=== PATIENT | male | born 1980 | race Caucasian/White ===

== ENCOUNTER 2019-07-20 19:51 | Emergency (ER) | payer MEDICAID, OTHER ==
[~2019-07-20] VITALS: Ht 190.5 cm; Wt 138.0 kg
[~2019-07-20 19:51] MED LIST: CYCL-1 PO; LORA1TAB PO; METH-360 PO; PRED50TA PO; PRED5TAB PO
[2019-07-20 21:27] VITALS: BP 128/99
== END 2019-07-20 21:29 | disposition home or self-care (01) ==
LOC: ER 19:52
DX: I80.8 Phlebitis and thrombophlebitis of other sites (principal); F12.90 Cannabis use, unspecified, uncomplicated; I10 Essential (primary) hypertension; E03.9 Hypothyroidism, unspecified; F17.200 Nicotine dependence, unspecified, uncomplicated; Z79.899 Other long term (current) drug therapy
CPT/HCPCS: 93971; 99284

== ENCOUNTER 2019-08-15 15:28 | Emergency (ER) | payer OTHER, MEDICAID ==
[~2019-08-15] VITALS: Ht 190.5 cm; Wt 159.0 kg
[2019-08-15 15:29] VITALS: BP 159/93
[2019-08-15] MEDS ORDERED: PENI500T2 PO (16:12)
[2019-08-15] MEDS ORDERED: IBUP-1984 PO (16:12)
== END 2019-08-15 16:54 | disposition home or self-care (01) ==
LOC: ER 15:29
DX: J02.9 Acute pharyngitis, unspecified (principal); I10 Essential (primary) hypertension; E03.9 Hypothyroidism, unspecified; F12.90 Cannabis use, unspecified, uncomplicated; Z79.899 Other long term (current) drug therapy
CPT/HCPCS: 87880; 99283

== ENCOUNTER 2020-10-18 19:38 | Emergency (ER) | payer SELFPAY ==
[~2020-10-18] VITALS: Ht 190.5 cm; Wt 131.8 kg
[2020-10-18] MEDS ORDERED: IBUP-1984 PO (21:54)
[2020-10-18] MEDS ORDERED: ketorolac tromethamine 15mg/ml inj. IM ONE (21:55)
== END 2020-10-18 22:24 | disposition home or self-care (01) ==
LOC: ER 19:38
DX: S93.402A Sprain of unspecified ligament of left ankle, initial encounter (principal); M25.572 Pain in left ankle and joints of left foot; I10 Essential (primary) hypertension; E03.9 Hypothyroidism, unspecified; Z79.899 Other long term (current) drug therapy; W01.0XXA Fall on same level from slipping, tripping and stumbling without subsequent striking against object, initial encounter; Y93.89 Activity, other specified; Y92.89 Other specified places as the place of occurrence of the external cause; Y99.8 Other external cause status
CPT/HCPCS: 73610; 73630; 96372; 99284; J1885

== ENCOUNTER 2021-09-01 13:22 | Emergency (ER) | payer BC ==
[~2021-09-01] VITALS: Ht 190.5 cm; Wt 112.5 kg
[2021-09-01] MEDS ORDERED: AMOX-117 PO (14:29)
[2021-09-01] MEDS ORDERED: PRED20TA PO (14:29)
[2021-09-01] MEDS ORDERED: ALBU8HFA PO (14:29)
== END 2021-09-01 15:12 | disposition home or self-care (01) ==
LOC: ER 13:23
DX: J20.9 Acute bronchitis, unspecified (principal); H92.01 Otalgia, right ear; R05.9 Cough, unspecified; I10 Essential (primary) hypertension; E03.9 Hypothyroidism, unspecified; F12.90 Cannabis use, unspecified, uncomplicated; Z79.2 Long term (current) use of antibiotics; Z79.899 Other long term (current) drug therapy
CPT/HCPCS: 99283

== ENCOUNTER 2022-10-21 20:44 | Inpatient (IN) | payer BC ==
[~2022-10-21] VITALS: Ht 193 cm; Wt 133.3 kg
[2022-10-21] MEDS ORDERED: piperacillin/tazo 3.375gm/50ml 50 ML IV ONE (21:10)
[2022-10-21] MEDS ORDERED: vancomycin/NS 1 GM ADD-VANTAGE 250 ML IV ONE (21:10)
[2022-10-21] MEDS ORDERED: normal saline 1000ML IV soln IV ONE (21:10)
[2022-10-21] MEDS ORDERED: iohexol 350MG/ML 100ml bottle IV ONE (21:50)
[2022-10-21 22:10] LABS: ABG BASE EXCESS 0.9 mmol/L (-2.0-2.0); ABG OXYGEN SATURATION 99.4 % (94-97); ABG PCO2 (T) 49.5 mmHg (35.0-48.0); ABG PO2 (T) 309.9 mmHg (75.0-100.0); ALLEN'S TEST Modified; FCOHb 10.9 % (0.0-3.9); FMetHb 0.6 % (0.0-1.5); PATIENT TEMPERATURE 37.9; TOTAL HEMOGLOBIN 19.5 G/dl (14.0-17.9)
[2022-10-21 22:36] LABS: BASOPHILS % (AUTO) 0.2 % (0-1); EOSINOPHILS # (AUTO) 0.1 X10'3 (0-0.9); EOSINOPHILS % (AUTO) 0.8 % (0-6); HEMATOCRIT 57.1 % (42.0-52.0); LYMPHOCYTES # (AUTO) 0.5 X10'3 (1.1-4.8); LYMPHOCYTES % (AUTO) 3.4 % (21-51); MEAN CORPUSCULAR HEMOGLOBIN 32.8 PG (27.0-31.0); MEAN CORPUSCULAR HGB CONC 31.8 g/dL (33.0-36.5); MEAN CORPUSCULAR VOLUME 103.1 FL (78-98); MONOCYTES # (AUTO) 0.6 X10'3 (0-0.9); MONOCYTES % (AUTO) 3.8 % (2-12); NEUTROPHILS # (AUTO) 13.8 X10'3 (1.8-7.7); NEUTROPHILS % (AUTO) 91.8 % (42-75); PLATELET COUNT 65 X10'3 (140-440); RED BLOOD COUNT 5.53 X10'6 (4.70-6.10); RED CELL DISTRIBUTION WIDTH 24.9 % (11.5-14.5)
[2022-10-21 22:38] LABS: HEMOGLOBIN 18.1 g/dl (14.0-17.9)
[2022-10-21] MEDS: NORepinephrine 8mg/ 250ml NS 250 ML IV PRN (22:43)
[2022-10-21 22:50] LABS: ALANINE AMINOTRANSFERASE 23 U/L (12-78); ALBUMIN/GLOBULIN RATIO 0.7 (1.1-1.5); ALKALINE PHOSPHATASE 95 IU/L (46-116); ANION GAP 4 (8-16); ASPARTATE AMINO TRANSFERASE 44 U/L (10-37); BLOOD UREA NITROGEN 14 MG/DL (7-18); BUN/CREATININE RATIO 9.9 (10.0-20.0); CALCIUM 7.2 MG/DL (8.5-10.1); CHLORIDE 97 MMOL/L (99-107); CREATININE 1.42 MG/DL (0.60-1.10); GLUCOSE 57 MG/DL (70-104); POTASSIUM 5.2 MMOL/L (3.5-5.1); SODIUM 133 MMOL/L (135-145); TOTAL CARBON DIOXIDE 31.9 MMOL/L (24-32); TOTAL PROTEIN 4.7 G/DL (6.4-8.2); eGFR 55 ML/MIN
[2022-10-21] MEDS ORDERED: thiamine 100mg/ml 2ml inj. IV ONE (22:50)
[2022-10-21 23:26] LABS: ANISOCYTOSIS 3+; PLATELET ESTIMATE DECREASED; POIKILOCYTOSIS 1+
[2022-10-21 23:27] LABS: STOMATOCYTES 1+
[2022-10-22] VITALS (16 sets, daily range): BP systolic 88–118; BP diastolic 48–79
[2022-10-22] MEDS ORDERED: SODIUM CHLORIDE IV ONE (00:30)
[2022-10-22] MEDS ORDERED: HYDROXOCOBALAMIN IV ONE (00:30)
[2022-10-22 01:54] LABS: ABG BASE EXCESS 0.1 mmol/L (-2.0-2.0); ABG HCO3 29.2 mmol/L (22.0-26.0); ABG OXYGEN SATURATION 99.3 % (94-97); ABG PCO2 (T) 62.8 mmHg (35.0-48.0); ABG PO2 (T) 254.3 mmHg (75.0-100.0); ALLEN'S TEST POSITIVE; FCOHb 7.1 % (0.0-3.9); FMetHb 0.8 % (0.0-1.5); FO2Hb 91.5 % (94-97); RESPIRATORY RATE 12 b/min; TOTAL HEMOGLOBIN 20.7 G/dl (14.0-17.9)
[2022-10-22] MEDS ORDERED: morphine 2 MG/ML inj. syringe IV PRN (02:20)
[2022-10-22] MEDS ORDERED: ondansetron/PF 4mg/2ml inj IV PRN (02:20)
[2022-10-22] MEDS ORDERED: morphine 4 MG/ML inj SYRINge IV PRN (02:20)
[2022-10-22] MEDS ORDERED: acetaminophen 325mg tablet PO PRN ×2 (02:20)
--- NOTE | 2022-10-22 02:21 | NUR ---
UPDATE PROVIDED TO [facility] W/VITALS . [facility] TO CALL BACK
[2022-10-22] MEDS: ringers solution, lacted 1,000 ML IV SCH ×3 (02:50→22:26)
[2022-10-22] MEDS ORDERED: ampicillin/sulbac 3gm/NS 100ml 100 ML IV SCH (03:00)
[2022-10-22] MEDS: albuterol 2.5 MG/3 ML nebule NEB SCH ×6 (03:25→22:48)
[2022-10-22 04:52] LABS: ABG BASE EXCESS -0.1 mmol/L (-2.0-2.0); ABG HCO3 25.9 mmol/L (22.0-26.0); ABG OXYGEN SATURATION 97.2 % (94-97); ABG PCO2 (T) 46.1 mmHg (35.0-48.0); ABG PO2 (T) 91.4 mmHg (75.0-100.0); ALLEN'S TEST Modified; FCOHb 5.8 % (0.0-3.9); FMetHb 0.7 % (0.0-1.5); FO2Hb 90.9 % (94-97)
--- NOTE | 2022-10-22 07:30 | NUR ---
Received patient report from Magui SAPP. Patient coming to room 2041.
[2022-10-22] MEDS: heparin, porcine 5000 units/ml vial SQ SCH ×2 (08:00→15:06)
[2022-10-22 09:00] LABS: ALANINE AMINOTRANSFERASE 30 U/L (12-78); ALBUMIN 2.2 G/DL (3.4-5.0); ALKALINE PHOSPHATASE 119 IU/L (46-116); ANION GAP 7 (8-16); ASPARTATE AMINO TRANSFERASE 80 U/L (10-37); BILIRUBIN,TOTAL 5.5 MG/DL (0.1-1.0); BLOOD UREA NITROGEN 16 MG/DL (7-18); BUN/CREATININE RATIO 14.3 (10.0-20.0); CALCIUM 6.7 MG/DL (8.5-10.1); CHLORIDE 97 MMOL/L (99-107); CREATININE 1.12 MG/DL (0.60-1.10); GLUCOSE 95 MG/DL (70-104); SODIUM 133 MMOL/L (135-145); TOTAL CARBON DIOXIDE 28.7 MMOL/L (24-32); eGFR 73 ML/MIN
[2022-10-22 09:03] LABS: ALBUMIN/GLOBULIN RATIO 0.7 (1.1-1.5); TOTAL PROTEIN 5.4 G/DL (6.4-8.2)
[2022-10-22 09:21] LABS: RED BLOOD COUNT 6.28 X10'6 (4.70-6.10)
[2022-10-22 09:23] LABS: HEMATOCRIT 64.4 % (42.0-52.0); HEMOGLOBIN 20.5 g/dl (14.0-17.9); MEAN CORPUSCULAR HEMOGLOBIN 32.7 PG (27.0-31.0); MEAN CORPUSCULAR VOLUME 102.6 FL (78-98)
[2022-10-22 09:24] LABS: EOSINOPHILS % (AUTO) 1.5 % (0-6); LYMPHOCYTES % (AUTO) 2.6 % (21-51); MEAN CORPUSCULAR HGB CONC 31.8 g/dL (33.0-36.5); MONOCYTES % (AUTO) 2.7 % (2-12); NEUTROPHILS % (AUTO) 92.9 % (42-75); PLATELET COUNT 55 X10'3 (140-440); RED CELL DISTRIBUTION WIDTH 23.8 % (11.5-14.5)
[2022-10-22 09:25] LABS: BASOPHILS % (AUTO) 0.3 % (0-1); EOSINOPHILS # (AUTO) 0.2 X10'3 (0-0.9); LYMPHOCYTES # (AUTO) 0.4 X10'3 (1.1-4.8); MONOCYTES # (AUTO) 0.4 X10'3 (0-0.9); NEUTROPHILS # (AUTO) 13.4 X10'3 (1.8-7.7)
[2022-10-22] MEDS: methylPREDNISolone sod succ/PF 40mg inj. IV SCH ×3 (09:28→20:15)
[2022-10-22] MEDS: ampicillin/sulbac 3gm/NS 100ml 100 ML IV SCH ×3 (09:28→20:15)
[2022-10-22] MEDS: NORepinephrine 8mg/ 250ml NS 250 ML IV PRN ×2 (09:32→22:42)
[2022-10-22] MEDS ORDERED: albumin (human) 25% 100ml IV 400 ML IV ONE (11:10)
[2022-10-22] MEDS: thiamine 100mg tablet PO SCH (11:18)
[2022-10-22] MEDS: multivitamins, therapeutics tablet PO SCH (11:18)
[2022-10-22] MEDS: folic acid 1mg tablet PO SCH (11:19)
--- NOTE | 2022-10-22 11:42 | NUR ---
Initial: Pt admit for hypoxic respiratory failure, COPD exacerbation, septic shock, and cellulitis. Per bedside RN pt with chronic cellulitis/wound to BLE. Wound care has been consulted, pending assessment at this time. Pt with an active regular diet order however NPO at breakfast d/t being on the BiPAP. Per RN will trial switching to HFNC so pt can eat, however unsure of how pt will eat as pt is very sleepy per RN. Pt with EtOH hx per EMR, requests to begin routine Thiamine, Folic acid, and MVI; clinical pharmacist to update EMR. No documented BM however pt just admitted today per EMR. Will continue to follow closely and make recommendations as appropriate. Recommendations: 1) Continue regular diet 2) Monitor need for ONS/additional protein 3) Routine Thiamine, Folic acid, and MVI for EtOH hx with elevated MCV 4) Routine bowel care 5) Scaled weight this admit; subsequent weekly scaled weights Addendum: 10/22/22 at [address] Amended: Links added.
[2022-10-22] MEDS: pantoprazole 40MG/NS 100ML BAG 100 ML IV SCH (11:43)
[2022-10-22] MEDS: albumin (Human) 5% 250ml 250 ML IV SCH ×4 (11:49→21:28)
[2022-10-22 11:51] LABS: URINE AMPHETAMINE SCREEN NEGATIVE (Neg); URINE BARBITUATE SCREEN NEGATIVE (Neg); URINE BENZODIAZEPINES SCREEN NEGATIVE (Neg); URINE CANNABINOID SCREEN POSITIVE (Neg); URINE COCAINE SCREEN NEGATIVE (Neg); URINE METHADONE SCREEN NEGATIVE (Neg); URINE OPIATE SCREEN NEGATIVE (Neg); URINE PHENCYCLIDINE SCREEN NEGATIVE (Neg)
[2022-10-22] MEDS ORDERED: GABA600T13 PO (11:57)
[2022-10-22] MEDS ORDERED: BUPR1FIL3 SL (11:57)
[2022-10-22] MEDS ORDERED: BUPR1FIL5 SL (11:57)
[2022-10-22] MEDS ORDERED: SYN0.088T PO (11:57)
--- NOTE | 2022-10-22 12:10 | NUR ---
Took wound care pictures of right and left lower extremities and coccyx. Unable to print pictures, printer not working. Wound care nurse saw wounds and dressed accordingly.
[2022-10-22] MEDS ORDERED: nicotine 21mg patch - 24 hr TD ONE (12:15)
--- NOTE | 2022-10-22 13:27 | NUR ---
PRESSURE ULCER EDUCATION: DEFINITION: A pressure ulcer is an area of skin that breaks down when you stay in one position too long. The constant pressure against the skin reduces the blood flow to that area and the affected tissue dies. CAUSES: "Being bedridden or in a wheelchair "Fragile skin "Having a chronic condition, such as diabetes or vascular disease "Inability to move certain parts of your body without assistance "Older age "Incontinence of urine or stool SYMPTOMS: "A reddened area that DOES NOT turn white when pressed on - this can be the beginning of a pressure ulcer "A blister, deep sore or a crater - these can be advanced pressure ulcers FIRST AID: "Relieve the pressure on this area "Keep the area clean and dry "Call your primary doctor if you see any of the above symptoms "DO NOT massage the area "DO NOT use a donut shaped or ring shaped pillow- these actually interfere with the blood flow and cause complications PREVENTION: "Check for pressure ulcers everyday "Change position at least every two hours to relieve pressure "Use items that help relieve pressure- pillows, sheepskin, foam padding, and powders. "Keep skin clean and dry "Eat healthy well balanced meals "Exercise daily IF YOU SEE ANY OF THESE SYMPTOMS WHILE IN THE HOSPITAL - TELL YOUR NURSE IMMEDIATELY. IF YOU SEE ANY OF THESE SYMPTOMS WHILE AT HOME OR HAVE ANY QUESTIONS OR CONCERNS ABOUT PRESSURE ULCERS - CALL YOUR PRIMARY DOCTOR IMMEDIATELY. Addendum: 10/22/22 at 1327 by Shu Jama LVN Amended: Links added.
[2022-10-22] MEDS ORDERED: buprenorphine/naloxone 8MG-2MG SUBlingual film SL ONE (14:22)
[2022-10-22] MEDS: gabapentin 300mg capsule PO SCH (15:14)
--- NOTE | 2022-10-22 18:22 | NUR ---
Problems reprioritized. Patient report given, questions answered & plan of care reviewed with Bo SAPP.
[2022-10-22] MEDS: midodrine tablet 2.5 MG TABLET PO SCH (20:15)
[2022-10-22] MEDS: nystatin 15 GM powder TP SCH (20:15)
[2022-10-23] VITALS (23 sets, daily range): BP systolic 82–120; BP diastolic 38–70
[2022-10-23] MEDS: albumin (Human) 5% 250ml 250 ML IV SCH ×7 (01:30→21:30)
[2022-10-23] MEDS: methylPREDNISolone sod succ/PF 40mg inj. IV SCH ×4 (02:46→20:19)
[2022-10-23 02:50] LABS: BASOPHILS % (AUTO) 0 % (0-1); EOSINOPHILS # (AUTO) 0.4 X10'3 (0-0.9); EOSINOPHILS % (AUTO) 3.3 % (0-6); LYMPHOCYTES # (AUTO) 0.3 X10'3 (1.1-4.8); LYMPHOCYTES % (AUTO) 2.3 % (21-51); MEAN PLATELET VOLUME 8.5 FL (7.4-10.4); MONOCYTES # (AUTO) 0.2 X10'3 (0-0.9); MONOCYTES % (AUTO) 1.9 % (2-12); NEUTROPHILS # (AUTO) 10.7 X10'3 (1.8-7.7); NEUTROPHILS % (AUTO) 92.5 % (42-75); WHITE BLOOD COUNT 11.6 X10'3 (4.5-11.0)
[2022-10-23 03:05] LABS: ALANINE AMINOTRANSFERASE 27 U/L (12-78); ALBUMIN 2.7 G/DL (3.4-5.0); ALKALINE PHOSPHATASE 88 IU/L (46-116); ANION GAP 6 (8-16); ASPARTATE AMINO TRANSFERASE 44 U/L (10-37); BILIRUBIN,TOTAL 4.6 MG/DL (0.1-1.0); BLOOD UREA NITROGEN 14 MG/DL (7-18); BUN/CREATININE RATIO 17.7 (10.0-20.0); CALCIUM 7.3 MG/DL (8.5-10.1); CHLORIDE 103 MMOL/L (99-107); CREATININE 0.79 MG/DL (0.60-1.10); GLUCOSE 162 MG/DL (70-104); MAGNESIUM 2.3 MG/DL (1.5-2.4); POTASSIUM 4.2 MMOL/L (3.5-5.1); SODIUM 140 MMOL/L (135-145); eGFR > 90 ML/MIN
[2022-10-23 03:11] LABS: ALBUMIN/GLOBULIN RATIO 1.1 (1.1-1.5); PHOSPHORUS 3.3 MG/DL (2.3-4.5); TOTAL PROTEIN 5.2 G/DL (6.4-8.2)
[2022-10-23] MEDS: albuterol 2.5 MG/3 ML nebule NEB SCH ×6 (03:29→23:19)
[2022-10-23] MEDS: ampicillin/sulbac 3gm/NS 100ml 100 ML IV SCH ×4 (03:35→20:20)
[2022-10-23 03:36] LABS: HEMATOCRIT 53.6 % (42.0-52.0); HEMOGLOBIN 17.1 g/dl (14.0-17.9); MEAN CORPUSCULAR HEMOGLOBIN 32.2 PG (27.0-31.0); MEAN CORPUSCULAR HGB CONC 31.9 g/dL (33.0-36.5); MEAN CORPUSCULAR VOLUME 101.1 FL (78-98)
[2022-10-23 03:39] LABS: PLATELET COUNT 46 X10'3 (140-440)
[2022-10-23 03:40] LABS: RED CELL DISTRIBUTION WIDTH 24.3 % (11.5-14.5)
[2022-10-23 04:07] LABS: ANISOCYTOSIS 3+; PLATELET ESTIMATE DECREASED; TOTAL CELLS COUNTED 100; TOXIC GRANULATION 1+; TOXIC VACUOLATION 1+
[2022-10-23 04:08] LABS: TARGET CELLS FEW; TEAR DROP CELLS 1+
--- NOTE | 2022-10-23 06:47 | NUR ---
Patient in room ICU 2041. I have received report from Bo SAPP and had the opportunity to ask questions and assume patient care.
[2022-10-23] MEDS: buprenorphine/naloxone 8MG-2MG SUBlingual film SL SCH (08:03)
[2022-10-23] MEDS: multivitamins, therapeutics tablet PO SCH (08:03)
[2022-10-23] MEDS: levoTHYROXINE 25mcg tablet PO SCH (08:03)
[2022-10-23] MEDS: levoTHYROXINE 100mcg tablet PO SCH (08:03)
[2022-10-23] MEDS: thiamine 100mg tablet PO SCH (08:03)
[2022-10-23] MEDS: midodrine tablet 2.5 MG TABLET PO SCH (08:04)
[2022-10-23] MEDS: pantoprazole 40MG/NS 100ML BAG 100 ML IV SCH (08:04)
[2022-10-23] MEDS: nicotine 21mg patch - 24 hr TD SCH (08:04)
[2022-10-23] MEDS: folic acid 1mg tablet PO SCH (08:04)
[2022-10-23] MEDS: nystatin 15 GM powder TP SCH ×2 (08:04→20:20)
[2022-10-23] MEDS: ringers solution, lacted 1,000 ML IV SCH ×2 (08:25→17:43)
[2022-10-23] MEDS ORDERED: bisacodyl 10mg suppository rectal RC PRN (08:40)
[2022-10-23] MEDS: gabapentin 300mg capsule PO SCH ×4 (08:46→20:39)
--- NOTE | 2022-10-23 11:03 | NUR ---
F/u: Pt seen by wound care, per note pt with a DTI to sacrum with intact purple skin and BLE cellulitis with skin loss to RLE and open skin to LLE. Per EMR pt currently on 3 L NC, currently with average 58% PO intake of first three meals on regular diet. Pt would benefit from ONS IF PO intake does not improve. Will continue to follow closely and make recommendations as appropriate. Addendum: 10/23/22 at [address] Amended: Links added.
[2022-10-23] MEDS: midodrine 5mg tablet PO SCH ×2 (12:32→15:04)
--- NOTE | 2022-10-23 18:18 | NUR ---
Problems reprioritized. Patient report given, questions answered & plan of care reviewed with Siva SAPP.
[2022-10-23] MEDS: buprenorphine/naloxone 2-0.5mg sublingual tablet SL PRN (20:20)
[2022-10-23] MEDS ORDERED: ringers solution, lacted 1,000 ML IV ONE (22:15)
[2022-10-24] VITALS (21 sets, daily range): BP systolic 80–110; BP diastolic 46–66
[2022-10-24] MEDS: albumin (Human) 5% 250ml 250 ML IV SCH ×3 (01:26→07:46)
[2022-10-24] MEDS: methylPREDNISolone sod succ/PF 40mg inj. IV SCH ×4 (02:38→19:13)
[2022-10-24 03:06] LABS: RED BLOOD COUNT 5.11 X10'6 (4.70-6.10)
[2022-10-24 03:08] LABS: BASOPHILS % (AUTO) 0.1 % (0-1); EOSINOPHILS % (AUTO) 0.4 % (0-6); HEMATOCRIT 53.8 % (42.0-52.0); LYMPHOCYTES # (AUTO) 0.5 X10'3 (1.1-4.8); LYMPHOCYTES % (AUTO) 4.5 % (21-51); MEAN CORPUSCULAR HEMOGLOBIN 33.3 PG (27.0-31.0); MEAN CORPUSCULAR HGB CONC 31.7 g/dL (33.0-36.5); MEAN CORPUSCULAR VOLUME 105.2 FL (78-98); MEAN PLATELET VOLUME 8.6 FL (7.4-10.4); MONOCYTES # (AUTO) 0.2 X10'3 (0-0.9); NEUTROPHILS # (AUTO) 9.8 X10'3 (1.8-7.7); RED CELL DISTRIBUTION WIDTH 26.5 % (11.5-14.5); WHITE BLOOD COUNT 10.5 X10'3 (4.5-11.0)
[2022-10-24 03:15] LABS: PLATELET COUNT 30 X10'3 (140-440)
[2022-10-24 03:18] LABS: ALANINE AMINOTRANSFERASE 27 U/L (12-78); ALBUMIN 2.9 G/DL (3.4-5.0); ALBUMIN/GLOBULIN RATIO 1.3 (1.1-1.5); ALKALINE PHOSPHATASE 90 IU/L (46-116); ANION GAP 5 (8-16); ASPARTATE AMINO TRANSFERASE 26 U/L (10-37); BILIRUBIN,TOTAL 3.3 MG/DL (0.1-1.0); BLOOD UREA NITROGEN 14 MG/DL (7-18); CALCIUM 7.9 MG/DL (8.5-10.1); CHLORIDE 105 MMOL/L (99-107); GLUCOSE 135 MG/DL (70-104); MAGNESIUM 2.2 MG/DL (1.5-2.4); PHOSPHORUS 2.4 MG/DL (2.3-4.5); POTASSIUM 4.1 MMOL/L (3.5-5.1); SODIUM 141 MMOL/L (135-145); TOTAL CARBON DIOXIDE 30.7 MMOL/L (24-32); TOTAL PROTEIN 5.2 G/DL (6.4-8.2); eGFR > 90 ML/MIN
[2022-10-24] MEDS: albuterol 2.5 MG/3 ML nebule NEB SCH ×6 (03:25→23:36)
[2022-10-24] MEDS: ampicillin/sulbac 3gm/NS 100ml 100 ML IV SCH ×4 (03:25→20:25)
[2022-10-24] MEDS: ringers solution, lacted 1,000 ML IV SCH ×3 (04:55→17:07)
--- NOTE | 2022-10-24 06:46 | NUR ---
Patient received on bed awake,no needs at this time.
[2022-10-24] MEDS: levoTHYROXINE 100mcg tablet PO SCH (07:44)
[2022-10-24] MEDS: thiamine 100mg tablet PO SCH (07:44)
[2022-10-24] MEDS: levoTHYROXINE 25mcg tablet PO SCH (07:44)
[2022-10-24] MEDS: multivitamins, therapeutics tablet PO SCH (07:45)
[2022-10-24] MEDS: midodrine 5mg tablet PO SCH ×3 (07:45→15:22)
[2022-10-24] MEDS: gabapentin 300mg capsule PO SCH ×4 (07:45→19:14)
[2022-10-24] MEDS: nystatin 15 GM powder TP SCH ×2 (07:45→19:14)
[2022-10-24] MEDS: folic acid 1mg tablet PO SCH (07:45)
[2022-10-24] MEDS: nicotine 21mg patch - 24 hr TD SCH (07:47)
[2022-10-24] MEDS: pantoprazole 40MG/NS 100ML BAG 100 ML IV SCH (07:59)
[2022-10-24] MEDS: buprenorphine/naloxone 8MG-2MG SUBlingual film SL SCH (09:35)
[2022-10-24 11:49] LABS: HEPATITIS C VIRUS ANTIBODY Non Reactive (Non Reactive)
[2022-10-24 17:54] LABS: CLARITY,URINE BLOODY (Clear); COLOR,URINE RED (Yellow); UA COLLECTION TYPE CLN CATCH MIDSTREAM
[2022-10-24 18:10] LABS: MUCUS STRANDS FEW /LPF (Neg); SQUAMOUS EPITHELIAL CELL,UR MODERATE /LPF (FEW)
[2022-10-24 18:11] LABS: BACTERIA,URINE FEW /HPF (Neg); CAL OXALATE CRYSTALS FEW /HPF (NEGATIVE); RBC,URINE 0-2 /HPF (0-2); WBC CLUMPS,URINE FEW /HPF (NEGATIVE); WBC,URINE 0-4 /HPF (0-4)
--- NOTE | 2022-10-24 18:15 | NUR ---
Problems reprioritized. Patient report given, questions answered & plan of care reviewed with Hipolito SAPP.
[2022-10-24] MEDS ORDERED: PERFLUTREN PROTEIN-A MICROSPHR (Optison) 0.22 MG/ML 3ML VIAL IV ONE (22:05)
--- NOTE | 2022-10-24 23:36 | NUR ---
No rounds done as pt is no long being followed by the Critical Care team per Dr. Guerrero. Pt has no issues tonight though. overall states he is feeling much better. WBCs trending down, afebrile. Able to tolerate RA when awake, wears 2L NC at night when resting, no c/o of SOB, no accessory muscle use with breathing. BP with MAP > 65 off pressors. Making good Urine via voiding, had BM today. Tolerating diet well. Has PCU orders, awaiting bed.
[2022-10-25] VITALS (13 sets, daily range): BP systolic 88–109; BP diastolic 54–77
[2022-10-25] MEDS: ringers solution, lacted 1,000 ML IV SCH (02:21)
[2022-10-25] MEDS: ampicillin/sulbac 3gm/NS 100ml 100 ML IV SCH ×4 (02:21→21:22)
[2022-10-25] MEDS: methylPREDNISolone sod succ/PF 40mg inj. IV SCH ×4 (02:22→21:19)
[2022-10-25] MEDS: albuterol 2.5 MG/3 ML nebule NEB SCH ×6 (03:15→23:02)
--- NOTE | 2022-10-25 05:34 | NUR ---
Encouraged pt to cough and deep breathe, Has required to go up to 3L NC t/o the night. Although when he's awake his O2 saturation is much better and could probably just be back on RA when awake, but has required more O2 as he sleeps. Attempting to turn pt q2hr since he was admitted with a DTI to the coccyx, however, he tends to pull pillows out to get comfortable. Pt educated frequently on the importance of turning when he already has a wound.
[2022-10-25 06:18] LABS: BASOPHILS % (AUTO) 0.2 % (0-1); EOSINOPHILS % (AUTO) 0 % (0-6); HEMATOCRIT 57.8 % (42.0-52.0); HEMOGLOBIN 17.5 g/dl (14.0-17.9); LYMPHOCYTES # (AUTO) 0.7 X10'3 (1.1-4.8); LYMPHOCYTES % (AUTO) 7.2 % (21-51); MEAN CORPUSCULAR HGB CONC 30.2 g/dL (33.0-36.5); MEAN CORPUSCULAR VOLUME 105.8 FL (78-98); MEAN PLATELET VOLUME 9.2 FL (7.4-10.4); MONOCYTES # (AUTO) 0.3 X10'3 (0-0.9); MONOCYTES % (AUTO) 2.9 % (2-12); NEUTROPHILS # (AUTO) 8.3 X10'3 (1.8-7.7); NEUTROPHILS % (AUTO) 89.7 % (42-75); RED BLOOD COUNT 5.46 X10'6 (4.70-6.10); RED CELL DISTRIBUTION WIDTH 26.3 % (11.5-14.5); WHITE BLOOD COUNT 9.3 X10'3 (4.5-11.0)
[2022-10-25 06:48] LABS: ALANINE AMINOTRANSFERASE 34 U/L (12-78); ALBUMIN/GLOBULIN RATIO 1.3 (1.1-1.5); ALKALINE PHOSPHATASE 121 IU/L (46-116); ANION GAP 6 (8-16); ASPARTATE AMINO TRANSFERASE 34 U/L (10-37); BILIRUBIN,TOTAL 2.9 MG/DL (0.1-1.0); BLOOD UREA NITROGEN 18 MG/DL (7-18); BUN/CREATININE RATIO 24.7 (10.0-20.0); CALCIUM 8.1 MG/DL (8.5-10.1); CHLORIDE 104 MMOL/L (99-107); CREATININE 0.73 MG/DL (0.60-1.10); GLUCOSE 120 MG/DL (70-104); MAGNESIUM 2.2 MG/DL (1.5-2.4); PHOSPHORUS 3.3 MG/DL (2.3-4.5); POTASSIUM 4.4 MMOL/L (3.5-5.1); SODIUM 141 MMOL/L (135-145); TOTAL CARBON DIOXIDE 31.5 MMOL/L (24-32); TOTAL PROTEIN 5.4 G/DL (6.4-8.2); eGFR > 90 ML/MIN
[2022-10-25 06:54] LABS: PLATELET COUNT 27 X10'3 (140-440)
[2022-10-25 07:32] LABS: ANISOCYTOSIS 3+; PLATELET ESTIMATE DECREASED; TOTAL CELLS COUNTED 100
[2022-10-25] MEDS ORDERED: PERFLUTREN PROTEIN-A MICROSPHR (Optison) 0.22 MG/ML 3ML VIAL IV ONE (08:00)
[2022-10-25] MEDS ORDERED: NORepinephrine 8mg/ 250ml NS 250 ML IV PRN (08:07)
[2022-10-25] MEDS: multivitamins, therapeutics tablet PO SCH (08:25)
[2022-10-25] MEDS: levoTHYROXINE 100mcg tablet PO SCH (08:25)
[2022-10-25] MEDS: levoTHYROXINE 25mcg tablet PO SCH (08:25)
[2022-10-25] MEDS: thiamine 100mg tablet PO SCH (08:26)
[2022-10-25] MEDS: midodrine 5mg tablet PO SCH ×3 (08:26→17:01)
[2022-10-25] MEDS: folic acid 1mg tablet PO SCH (08:26)
[2022-10-25] MEDS: gabapentin 300mg capsule PO SCH ×3 (08:26→17:02)
[2022-10-25] MEDS: nicotine 21mg patch - 24 hr TD SCH (09:54)
[2022-10-25] MEDS: nystatin 15 GM powder TP SCH ×2 (09:55→21:22)
[2022-10-25] MEDS: buprenorphine/naloxone 8MG-2MG SUBlingual film SL SCH (09:55)
--- NOTE | 2022-10-25 10:53 | NUR ---
Reassessment: Overall pt with poor PO intake, documented with 25-50% PO intake of all meals not meeting estimated nutrient needs. Pt seen at bedside, endorses a great appetite. Breakfast tray visualized during RD visit noted to be mostly consumed and pt states he'll eat the rest of the food after working with PT. Per pt appetite is improved after having a BM 10/24 (pt reports medium in size) as he previously had not had a BM x 5 days. Pt denies food allergies though reports disliking fish, d/w dietary. Pt denies any issues chewing or swallowing however then reports having "bad teeth" which makes it hard to chew crunchy items. Pt declines texture modification however does request to have soft fruit, d/w dietary. Pt provided with RD contact information and encouraged to reach out should he have any further preferences. Will continue to follow. Recommendations: 1) Continue regular diet 2) [place] food preferences: No baked fish (tuna is okay), soft fruits 3) Monitor need for ONS/additional protein 4) Routine Thiamine, Folic acid, and MVI for EtOH hx with elevated MCV 5) Routine bowel care 6) Weekly scaled weights Addendum: 10/25/22 at [address] Amended: Links added.
--- NOTE | 2022-10-25 14:33 | NUR ---
PRESSURE ULCER EDUCATION: DEFINITION: A pressure ulcer is an area of skin that breaks down when you stay in one position too long. The constant pressure against the skin reduces the blood flow to that area and the affected tissue dies. CAUSES: "Being bedridden or in a wheelchair "Fragile skin "Having a chronic condition, such as diabetes or vascular disease "Inability to move certain parts of your body without assistance "Older age "Incontinence of urine or stool SYMPTOMS: "A reddened area that DOES NOT turn white when pressed on - this can be the beginning of a pressure ulcer "A blister, deep sore or a crater - these can be advanced pressure ulcers FIRST AID: "Relieve the pressure on this area "Keep the area clean and dry "Call your primary doctor if you see any of the above symptoms "DO NOT massage the area "DO NOT use a donut shaped or ring shaped pillow- these actually interfere with the blood flow and cause complications PREVENTION: "Check for pressure ulcers everyday "Change position at least every two hours to relieve pressure "Use items that help relieve pressure- pillows, sheepskin, foam padding, and powders. "Keep skin clean and dry "Eat healthy well balanced meals "Exercise daily IF YOU SEE ANY OF THESE SYMPTOMS WHILE IN THE HOSPITAL - TELL YOUR NURSE IMMEDIATELY. IF YOU SEE ANY OF THESE SYMPTOMS WHILE AT HOME OR HAVE ANY QUESTIONS OR CONCERNS ABOUT PRESSURE ULCERS - CALL YOUR PRIMARY DOCTOR IMMEDIATELY. Addendum: 10/25/22 at 1433 by Juarez Owens RN Amended: Links added.
[2022-10-25] MEDS: buprenorphine/naloxone 2-0.5mg sublingual tablet SL PRN (21:18)
[2022-10-26] VITALS (9 sets, daily range): BP systolic 91–115; BP diastolic 53–76
[2022-10-26] MEDS: methylPREDNISolone sod succ/PF 40mg inj. IV SCH ×4 (02:09→19:22)
[2022-10-26] MEDS: ampicillin/sulbac 3gm/NS 100ml 100 ML IV SCH ×4 (02:10→20:28)
[2022-10-26] MEDS: albuterol 2.5 MG/3 ML nebule NEB SCH ×6 (03:00→23:05)
[2022-10-26 06:22] LABS: ALANINE AMINOTRANSFERASE 43 U/L (12-78); ALBUMIN 2.8 G/DL (3.4-5.0); ALBUMIN/GLOBULIN RATIO 1.2 (1.1-1.5); ALKALINE PHOSPHATASE 123 IU/L (46-116); ANION GAP 8 (8-16); ASPARTATE AMINO TRANSFERASE 32 U/L (10-37); BILIRUBIN,TOTAL 2.5 MG/DL (0.1-1.0); BLOOD UREA NITROGEN 23 MG/DL (7-18); BUN/CREATININE RATIO 33.3 (10.0-20.0); CALCIUM 8.1 MG/DL (8.5-10.1); CHLORIDE 103 MMOL/L (99-107); CREATININE 0.69 MG/DL (0.60-1.10); GLUCOSE 131 MG/DL (70-104); MAGNESIUM 2.2 MG/DL (1.5-2.4); PHOSPHORUS 3.7 MG/DL (2.3-4.5); POTASSIUM 4.5 MMOL/L (3.5-5.1); SODIUM 141 MMOL/L (135-145); TOTAL CARBON DIOXIDE 29.6 MMOL/L (24-32); TOTAL PROTEIN 5.2 G/DL (6.4-8.2); eGFR > 90 ML/MIN
[2022-10-26 06:26] LABS: BASOPHILS % (AUTO) 0.2 % (0-1); EOSINOPHILS % (AUTO) 0.2 % (0-6); HEMATOCRIT 55.9 % (42.0-52.0); HEMOGLOBIN 17.3 g/dl (14.0-17.9); LYMPHOCYTES # (AUTO) 0.6 X10'3 (1.1-4.8); LYMPHOCYTES % (AUTO) 9.3 % (21-51); MEAN CORPUSCULAR HEMOGLOBIN 32.8 PG (27.0-31.0); MEAN CORPUSCULAR VOLUME 105.9 FL (78-98); MEAN PLATELET VOLUME 9.2 FL (7.4-10.4); MONOCYTES # (AUTO) 0.2 X10'3 (0-0.9); MONOCYTES % (AUTO) 3.7 % (2-12); NEUTROPHILS # (AUTO) 5.4 X10'3 (1.8-7.7); NEUTROPHILS % (AUTO) 86.6 % (42-75); RED BLOOD COUNT 5.28 X10'6 (4.70-6.10); RED CELL DISTRIBUTION WIDTH 25.5 % (11.5-14.5); WHITE BLOOD COUNT 6.2 X10'3 (4.5-11.0)
--- NOTE | 2022-10-26 06:30 | NUR ---
Patient in room ICU 2041. I have received report from SENAIT Gregg and had the opportunity to ask questions and assume patient care.
[2022-10-26 06:53] LABS: PLATELET COUNT 34 X10'3 (140-440)
[2022-10-26 07:28] LABS: ANISOCYTOSIS 3+; PLATELET ESTIMATE DECREASED; TOTAL CELLS COUNTED 100
[2022-10-26] MEDS: gabapentin 300mg capsule PO SCH ×3 (08:16→16:53)
[2022-10-26] MEDS: levoTHYROXINE 25mcg tablet PO SCH (08:17)
[2022-10-26] MEDS: thiamine 100mg tablet PO SCH (08:17)
[2022-10-26] MEDS: midodrine 5mg tablet PO SCH ×3 (08:17→15:36)
[2022-10-26] MEDS: levoTHYROXINE 100mcg tablet PO SCH (08:17)
[2022-10-26] MEDS: multivitamins, therapeutics tablet PO SCH (08:18)
[2022-10-26] MEDS: buprenorphine/naloxone 8MG-2MG SUBlingual film SL SCH (08:18)
[2022-10-26] MEDS: nicotine 21mg patch - 24 hr TD SCH (08:19)
[2022-10-26] MEDS: nystatin 15 GM powder TP SCH ×2 (08:20→19:22)
[2022-10-26] MEDS: folic acid 1mg tablet PO SCH (08:20)
--- NOTE | 2022-10-26 18:10 | NUR ---
Problems reprioritized. Patient report given, questions answered & plan of care reviewed with SENAIT Trinh.
[2022-10-26] MEDS: docusate sod 100mg capsule PO SCH (19:23)
[2022-10-26] MEDS: buprenorphine/naloxone 2-0.5mg sublingual tablet SL PRN (20:28)
[2022-10-27] VITALS: BP 105/64
[2022-10-27] MEDS: albuterol 2.5 MG/3 ML nebule NEB SCH ×4 (02:30→15:38)
[2022-10-27 02:42] LABS: ALANINE AMINOTRANSFERASE 53 U/L (12-78); ALBUMIN 2.8 G/DL (3.4-5.0); ALBUMIN/GLOBULIN RATIO 1.1 (1.1-1.5); ALKALINE PHOSPHATASE 116 IU/L (46-116); ANION GAP 7 (8-16); BILIRUBIN,TOTAL 2.8 MG/DL (0.1-1.0); BLOOD UREA NITROGEN 24 MG/DL (7-18); BUN/CREATININE RATIO 35.3 (10.0-20.0); CALCIUM 8.6 MG/DL (8.5-10.1); CHLORIDE 104 MMOL/L (99-107); CREATININE 0.68 MG/DL (0.60-1.10); GLUCOSE 146 MG/DL (70-104); SODIUM 141 MMOL/L (135-145); TOTAL CARBON DIOXIDE 29.6 MMOL/L (24-32); TOTAL PROTEIN 5.4 G/DL (6.4-8.2); eGFR > 90 ML/MIN
[2022-10-27 02:49] LABS: BASOPHILS % (AUTO) 0.1 % (0-1); EOSINOPHILS % (AUTO) 0 % (0-6); HEMATOCRIT 57.2 % (42.0-52.0); HEMOGLOBIN 17.4 g/dl (14.0-17.9); LYMPHOCYTES # (AUTO) 0.7 X10'3 (1.1-4.8); LYMPHOCYTES % (AUTO) 13.2 % (21-51); MEAN CORPUSCULAR HEMOGLOBIN 32.2 PG (27.0-31.0); MEAN CORPUSCULAR HGB CONC 30.3 g/dL (33.0-36.5); MEAN CORPUSCULAR VOLUME 106.2 FL (78-98); MEAN PLATELET VOLUME 8.6 FL (7.4-10.4); MONOCYTES # (AUTO) 0.3 X10'3 (0-0.9); MONOCYTES % (AUTO) 6.5 % (2-12); NEUTROPHILS # (AUTO) 4.1 X10'3 (1.8-7.7); NEUTROPHILS % (AUTO) 80.2 % (42-75); RED BLOOD COUNT 5.39 X10'6 (4.70-6.10); RED CELL DISTRIBUTION WIDTH 25.3 % (11.5-14.5); WHITE BLOOD COUNT 5.1 X10'3 (4.5-11.0)
[2022-10-27 02:59] LABS: ASPARTATE AMINO TRANSFERASE 36 U/L (10-37); MAGNESIUM 2.2 MG/DL (1.5-2.4); PHOSPHORUS 3.4 MG/DL (2.3-4.5); POTASSIUM 4.6 MMOL/L (3.5-5.1)
[2022-10-27 03:47] LABS: PLATELET COUNT 43 X10'3 (140-440)
[2022-10-27] MEDS: ampicillin/sulbac 3gm/NS 100ml 100 ML IV SCH ×3 (03:49→15:41)
[2022-10-27 04:00] VITALS: BP 101/68
--- NOTE | 2022-10-27 06:13 | NUR ---
Problems reprioritized. Patient report given, questions answered & plan of care reviewed with SENAIT Freeman.
[2022-10-27] MEDS: midodrine 5mg tablet PO SCH ×3 (07:22→15:42)
[2022-10-27] MEDS: multivitamins, therapeutics tablet PO SCH (07:22)
[2022-10-27] MEDS: levoTHYROXINE 25mcg tablet PO SCH (07:22)
[2022-10-27] MEDS: folic acid 1mg tablet PO SCH (07:22)
[2022-10-27] MEDS: docusate sod 100mg capsule PO SCH (07:22)
[2022-10-27] MEDS: levoTHYROXINE 100mcg tablet PO SCH (07:22)
[2022-10-27] MEDS: gabapentin 300mg capsule PO SCH ×2 (07:22→12:58)
[2022-10-27] MEDS: thiamine 100mg tablet PO SCH (07:22)
[2022-10-27] MEDS: nystatin 15 GM powder TP SCH (07:23)
[2022-10-27] MEDS: buprenorphine/naloxone 8MG-2MG SUBlingual film SL SCH (07:23)
[2022-10-27] MEDS: nicotine 21mg patch - 24 hr TD SCH (07:25)
[2022-10-27 08:00] VITALS: BP 112/76
[2022-10-27] MEDS ORDERED: methylPREDNISolone sod succ/PF 40mg inj. IV SCH (08:00)
--- NOTE | 2022-10-27 11:53 | NUR ---
Unable to take wound care photos due to nonfunctional memory card.
[2022-10-27 12:00] VITALS: BP 113/81
[2022-10-27] MEDS ORDERED: AMOX-580 PO (15:22)
[2022-10-27] MEDS ORDERED: MIDO5TAB4 PO (15:22)
[2022-10-27] MEDS ORDERED: MULT-25 PO (15:22)
[2022-10-27] MEDS ORDERED: BUDE10.22 INH (15:22)
[2022-10-27] MEDS ORDERED: ALBU6.7H14 INH (15:22)
[2022-10-27] MEDS ORDERED: THIA50TA10 PO (15:22)
[2022-10-27] MEDS ORDERED: LACT1CAP74 PO (15:22)
[2022-10-27] MEDS ORDERED: PRED10TA23 PO (15:22)
[2022-10-27] MEDS ORDERED: NICO-687 TD (15:22)
[2022-10-27] MEDS ORDERED: FOLI1TAB27 PO (15:22)
--- NOTE | 2022-10-27 15:55 | NUR ---
Wound photos not taken because the memory card provided to the ICU is not working. This has been a known issue and has not been resolved. Addendum: 10/27/22 at 1557 by Judah Siddiqi RN Amended: Links added.
--- NOTE | 2022-10-27 16:00 | NUR ---
Pt discharged home
[2022-10-27 16:16] VITALS: BP 108/78
== END 2022-10-27 16:15 | disposition home health service (06) | DRG 871 ==
LOC: ER 20:45 → ED HOLD 10-22 02:28 → ICU 2S 10-22 07:54
PROVIDERS: ADMIT Internal Medicine; ATTEND Internal Medicine Critical Care Medicine
PROC: 02HV33Z Insertion of Infusion Device into Superior Vena Cava, Percutaneous Approach (ICD-10-PCS; 2022-10-21)
PROC: B32T1ZZ Computerized Tomography (CT Scan) of Left Pulmonary Artery using Low Osmolar Contrast (ICD-10-PCS; 2022-10-21)
PROC: B3201ZZ Computerized Tomography (CT Scan) of Thoracic Aorta using Low Osmolar Contrast (ICD-10-PCS; 2022-10-21)
PROC: B32S1ZZ Computerized Tomography (CT Scan) of Right Pulmonary Artery using Low Osmolar Contrast (ICD-10-PCS; 2022-10-21)
PROC: 5A09357 Assistance with Respiratory Ventilation, Less than 24 Consecutive Hours, Continuous Positive Airway Pressure (ICD-10-PCS; principal; 2022-10-22)
DX: A41.9 Sepsis, unspecified organism (principal); J96.21 Acute and chronic respiratory failure with hypoxia; R65.21 Severe sepsis with septic shock; J96.22 Acute and chronic respiratory failure with hypercapnia; J44.1 Chronic obstructive pulmonary disease with (acute) exacerbation; L03.115 Cellulitis of right lower limb; L03.116 Cellulitis of left lower limb; E87.4 Mixed disorder of acid-base balance; E87.1 Hypo-osmolality and hyponatremia; F10.20 Alcohol dependence, uncomplicated; D75.89 Other specified diseases of blood and blood-forming organs; D69.59 Other secondary thrombocytopenia; T59.7X1A Toxic effect of carbon dioxide, accidental (unintentional), initial encounter; D75.1 Secondary polycythemia; E03.9 Hypothyroidism, unspecified; F15.10 Other stimulant abuse, uncomplicated; F17.210 Nicotine dependence, cigarettes, uncomplicated; G89.29 Other chronic pain; I10 Essential (primary) hypertension; K76.9 Liver disease, unspecified; E80.6 Other disorders of bilirubin metabolism; Z91.199 Patient's noncompliance with other medical treatment and regimen due to unspecified reason; Z79.899 Other long term (current) drug therapy; Z71.6 Tobacco abuse counseling; Z71.41 Alcohol abuse counseling and surveillance of alcoholic; Z71.51 Drug abuse counseling and surveillance of drug abuser; Y92.89 Other specified places as the place of occurrence of the external cause
CPT/HCPCS: 36415; 36600; 70450; 71045; 71275; 76700; 80053; 80305; 81001; 82803; 82948; 83605; 83735; 83880; 84100; 84145; 84439; 84443; 84484; 85007; 85008; 85018; 85025; 85610; 86803; 87040; 87081; 87522; 93005; 93306; 94640; 94660; 94760; 97116; 97161; 97530; 97535; 99285; A4333; A4615; A4649; A6196; A6213; A6222; A6223; A6250; A6253; A6446; A6449; C1751; C9113; G0378; J0295; J2543; J2920; J3370; J3411; J3490; J7030; J7040; J7120; P9045; P9047; Q9967